=== PATIENT | male | born 1955 | race African-American/Black ===

== ENCOUNTER 2024-07-24 18:07 | Emergency (ER) | payer OTHER ==
[~2024-07-24] VITALS: Ht 190.5 cm; Wt 86.0 kg
[2024-07-24 18:11] VITALS: BP 145/96; PULSE 96; RESP 18; TEMP 36.9; O2SAT 98
[2024-07-24] MEDS: ACETAMINOPHEN 325MG TABLET PO ONE (21:25)
== END 2024-07-24 21:27 | disposition home or self-care (01) ==
LOC: ER 18:07
DX: S09.8XXA Other specified injuries of head, initial encounter (principal); I10 Essential (primary) hypertension; Z86.73 Personal history of transient ischemic attack (TIA), and cerebral infarction without residual deficits; X58.XXXA Exposure to other specified factors, initial encounter; Y93.89 Activity, other specified; Y92.89 Other specified places as the place of occurrence of the external cause; Y99.8 Other external cause status
CPT/HCPCS: 99284